=== PATIENT | female | born 1970 | race Hispanic/Latino ===

== ENCOUNTER 2017-12-19 18:25 | Emergency (ER) | payer SELFPAY ==
[2017-12-19 18:46] VITALS: BMI 23.4
[2017-12-19 18:53] VITALS: TEMP 99
--- NOTE | 2017-12-19 19:03 | ED PDOC ---
"Arrival/HPI - General Time Seen by Provider: 12/19/17 18:58 Historian: Patient, EMS EM Caveat: Uncooperative - History of Present Illness Narrative History of Present Illness (Text): 12/19/17 19:03 47 y/o female, limited HPI can be obtained as the patient is agitated, nkda, biba for etoh intoxication and found in the public yelling and screaming with etoh on breath. Pt. is here at the ER, resting on the stretcher, yelling and screaming at the staff and other patient, refused to answer many question, only provide selective answer. Pt. has no chest pain or shortness of breath, no night sweat, no rash, no numbness or tingling, no palpitation, no dizziness, no change in vision, no other medical or psychological complaints. Past Medical History - Provider Review Nursing Documentation Reviewed: Yes Family/Social History - Physician Review Nursing Documentation Reviewed: Yes Family/Social History: Unknown Family HX Allergies/Home Meds Allergies/Adverse Reactions: Allergies No Known Allergies Allergy (Verified 12/19/17 19:00) Review of Systems - Review of Systems Systems not reviewed;Unavailable: Uncooperative Physical Exam Vital Signs Reviewed: Yes Vital Signs Temp Pulse Resp BP Pulse Ox 12/19/17 19:17 99 F 83 18 125/77 97 12/19/17 18:25 99 F 83 18 125/77 97 Temperature: Afebrile Blood Pressure: Normal Pulse: Regular Respiratory Rate: Normal Appearance: Positive for: Well-Appearing, Non-Toxic, Comfortable Pain Distress: None Mental Status: Positive for: Agitated - Systems Exam Head: Present: Atraumatic, Normocephalic, Laceration (visible 3 stables with healing and dry blood scab noted with hematoma noted, wound is not healed. ) Pupils: Present: PERRL Extroacular Muscles: Present: EOMI Conjunctiva: Present: Normal Mouth: Present: Moist Mucous Membranes Nose (External): Present: Atraumatic. No: Abrasion, Contusion, Laceration Nose (Internal): Present: Normal Inspection, No Active Bleeding Neck: Present: Normal Range of Motion. No: MIDLINE TENDERNESS, Paraspinal Tenderness Respiratory/Chest: Present: Clear to Auscultation, Good Air Exchange. No: Respiratory Distress, Accessory Muscle Use, Retracting, Rhonchi Cardiovascular: Present: Regular Rate and Rhythm, Normal S1, S2. No: Murmurs Abdomen: No: Tenderness, Distention, Peritoneal Signs, Rebound, Guarding Back: Present: Normal Inspection. No: CVA Tenderness, Midline Tenderness, Paraspinal Tenderness Upper Extremity: Present: Normal Inspection, Normal ROM, NORMAL PULSES, Neurovascularly Intact, Capillary Refill < 2s. No: Cyanosis, Edema, Deformity Lower Extremity: Present: Normal Inspection, Normal ROM, Neurovascularly Intact , Capillary Refill < 2 s. No: Edema, Tenderness, Swelling, Deformity Neurological: Present: GCS=15, CN II-XII Intact, Speech Normal, Motor Func Grossly Intact, Memory Normal Skin: Present: Warm, Dry, Normal Color. No: Rashes Psychiatric: Present: Alert, Oriented x 3, Normal Insight, Normal Concentration Medical Decision Making ED Course and Treatment: 12/19/17 19:06 -labs/uds -CT Head -Ativan/haldol (agitated and yelling, threatened to leave, won't reason with me) , soft restraints both upper extremity. -Observe and reassess 12/19/17 21:03 -Pt. is calmed, sleeping, restraints remove. 12/20/17 00:30 -3 red is attach, wound appear to be new, wound still healing, doesn't appear to be day 7 or greater than 7 days, would keep the suture inside, no signs of infection on the staple. -CT Head show Left occipitoparietal scalp contusion with laceration status post closure with skin red. No acute intracranial abnormalities. Nonacute findings as above. -Beta HCG is negative which is within normal limit -labs show no acute findings except K+ 3.3 (potassium chloride 40meq po) and CK 524 (Pt. refused IV, drinking water. ) -UDS ordered but refused to provide urine, drug screen canceled. 12/20/17 02:05 -Pt. is still sleeping, resting comfortably, easily arousable, offers no medical or psychological complaints, vitally stable, pending sober -Case discussed and endorsed to the current ER attending Dr. Washington for re- evaluation/drug screen and sober. - Lab Interpretations Lab Results: 12/19/17 20:00 12/19/17 20:00 Lab Results 12/19/17 20:00: Salicylates < 1 L, Acetaminophen < 10.0 L 12/19/17 20:00: Beta HCG, Quant 3.51 12/19/17 20:00: Sodium 146, Potassium 3.3 L, Chloride 106, Carbon Dioxide 26, Anion Gap 17, BUN 11, Creatinine 0.5 L, Est GFR ( Amer) > 60, Est GFR ( Non-Af Amer) > 60, Random Glucose 83, Calcium 8.5, Magnesium 1.9, Total Bilirubin 0.4, AST 126 H, ALT 35, Alkaline Phosphatase 83, Total Creatine Kinase 524 H, CK-MB (CK-2) 4.5 H, CK-MB (CK-2) % Cancelled, Total Protein 7.0, Albumin 3.8, Globulin 3.2, Albumin/Globulin Ratio 1.2 12/19/17 20:00: WBC 3.9 L, RBC 3.68, Hgb 12.7, Hct 37.9, MCV 103.0, MCH 34.5, MCHC 33.5, RDW 13.9, Plt Count 167, MPV 8.2, Gran % 49.9 L, Lymph % (Auto) 37.6 H, [place] % (Auto) 9.9 H, Eos % (Auto) 1.8, Baso % (Auto) 0.8, Gran # 1.97, Lymph # (Auto) 1.5, [place] # (Auto) 0.4, Eos # (Auto) 0.1, Baso # (Auto) 0.03 - RAD Interpretation Radiology Orders: 12/19/17 19:01 HEAD W/O CONTRAST [CT] Stat CT Head: Limitations: Motion artifact degrades some of images. Brain: Volume loss. Cavum septum pellucidum and vergae. No acute hemorrhage. No acute infarct. Mild chronic small vessel white matter ischemia. Ventricles: No hydrocephalus. Bones/joints: No acute fracture. Soft tissues: Left occipitoparietal scalp contusion with laceration status post closure with skin red. Vasculature: Calcified plaque in the wall of the distal internal carotid arteries. Sinuses: Mild sinus mucosal thickening. Mastoid air cells: Unremarkable as visualized. IMPRESSION: Left occipitoparietal scalp contusion with laceration status post closure with skin red. No acute intracranial abnormalities. Nonacute findings as above. KEATON LEDESMA | Preliminary Radiology Report Thank you for allowing us to participate in the care of your patient. Dictated and Authenticated by: David Randolph MD 12/19/2017 11:46 PM Eastern Time ([place] & [place]) [employer] Operator: Radiologist - Medication Orders Current Medication Orders: Discontinued Medications Haloperidol Lactate (Haldol) 5 mg IM STAT STA PRN Reason: Protocol Stop: 12/19/17 19:02 Last Admin: 12/19/17 19:17 Dose: 5 mg IM Administration Charges Document 12/19/17 19:17 CNR (Rec: 12/19/17 19:17 [facility] [id number] Injection Site MAR Injection Site Left Gluteus Baldev Charges for Administration # of IM Administrations 1 Multivitamins/Vitamin C 10 ml/Thiamine HCl 100 mg/ Folic Acid 1 mg/ Dextrose 1, 011.2 mls @ 1,000 mls/hr IV .Q1H1M ONE Stop: 12/19/17 22:27 Lorazepam (Ativan) 2 mg IM ONCE ONE PRN Reason: Protocol Stop: 12/19/17 19:02 Last Admin: 12/19/17 19:17 Dose: 2 mg IM Administration Charges Document 12/19/17 19:17 CNR (Rec: 12/19/17 19:17 [facility] [id number] Injection Site MAR Injection Site Left Gluteus Baldev Charges for Administration # of IM Administrations 1 Potassium Chloride (K-Dur 20 Meq Er Tab) 40 meq PO STAT STA Stop: 12/19/17 21:02 - PA / SCULPTURE INSTRUCTOR / Resident Statement /DO has reviewed & agrees with the documentation as recorded. Disposition/Present on Arrival - Present on Arrival Any Indicators Present on Arrival: No History of DVT/PE: No History of Uncontrolled Diabetes: No Urinary Catheter: No History of Decub. Ulcer: No - Disposition Have Diagnosis and Disposition been Completed?: Yes Diagnosis: Alcohol intoxication Disposition Time: 02:00 Patient Problems: Current Active Problems Problem Status Onset Alcohol intoxication Acute Condition: GOOD"
[2017-12-19 20:44] LABS: ALB/GLOB RATIO 1.2 (1.1-1.8); ALBUMIN 3.8 g/dL (3.0-4.8); ALT/SGPT 35 U/L (7-56); AST/SGOT 126 U/L (14-36); BLOOD UREA NITROGEN 11 mg/dL (7-21); CALCIUM 8.5 mg/dL (8.4-10.5); GFR NON-AFRICAN AMERICAN > 60
[2017-12-19 20:45] LABS: BASO # 0.03 K/mm3 (0.0-2.0); BASO % 0.8 % (0.0-3.0); EOS # 0.1 (0.0-0.7); EOS % 1.8 % (1.5-5.0); GRAN # 1.97 (1.4-6.5); GRAN % 49.9 % (50.0-68.0); HEMOGLOBIN 12.7 g/dL (12.0-16.0); LYMPH # 1.5 (1.2-3.4); LYMPH % 37.6 % (22.0-35.0); MEAN CORPUSCULAR HEMOGLOBIN 34.5 pg (25.0-35.0); MEAN CORPUSCULAR HGB CONC 33.5 g/dl (31.0-37.0); MEAN PLATELET VOLUME 8.2 fl (7.0-11.0); MONO # 0.4 (0.1-0.6); MONO % 9.9 % (1.0-6.0); RBC 3.68 10^6/uL (3.5-6.1); RED CELL DISTRIBUTION WIDTH 13.9 % (11.5-14.5); WHITE BLOOD COUNT 3.9 10^3/ul (4.5-11.0)
[2017-12-19] MEDS ORDERED: Potassium Chloride 20 mEq ER Tab PO STA (21:01)
[2017-12-19 21:13] LABS: ACETAMINOPHEN < 10.0 ug/ml (10.0-20.0); SALICYLATE < 1 mg/dL (2.0-20.0)
[2017-12-19 21:26] LABS: CK-MB 4.5 ng/mL (0.0-3.6)
[2017-12-19] MEDS ORDERED: Multivitamin (MVI) 10 ML, Thiamine 100 MG, Folic Acid 1 MG in Dextrose 5% In Water 1,00... IV ONE (21:27)
[2017-12-19] MEDS ORDERED: Sodium Chloride 0.9% 1,000 ML IV SCH (21:30)
[2017-12-20 04:32] VITALS: PULSE 76; RESP 16
[2017-12-20 06:25] VITALS: BP 117/82; O2SAT 99
--- NOTE | 2017-12-20 07:59 | CT ---
Date of service: 12/19/2017 PROCEDURE: CT HEAD WITHOUT CONTRAST. HISTORY: etoh, agitated, r/o bleed COMPARISON: None available. TECHNIQUE: Axial computed tomography images were obtained through the head/brain without intravenous contrast. Radiation dose: Total exam DLP = 1501.0 to mGy-cm. This CT exam was performed using one or more of the following dose reduction techniques: Automated exposure control, adjustment of the mA and/or kV according to patient size, and/or use of iterative reconstruction technique. FINDINGS: Examination limited by motion and streak artifact which degrades several images. HEMORRHAGE: No intracranial hemorrhage. BRAIN: Diffuse atrophy with prominence of the ventricles and sulci noted. No mass effect or edema. Scattered periventricular and subcortical white matter hypodensities, which are nonspecific, but often seen with chronic microvascular ischemic disease. Please note that MRI with diffusion imaging is more sensitive in the detection of acute ischemic event. VENTRICLES: Cavum septum pellucidum, anatomic variant. No hydrocephalus. CALVARIUM: Unremarkable. PARANASAL SINUSES: Unremarkable as visualized. No significant inflammatory changes. MASTOID AIR CELLS: Unremarkable as visualized. No inflammatory changes. OTHER FINDINGS: Left occipital parietal scalp contusion with laceration and surgical skin red. IMPRESSION: Limited study as above. Left occipital parietal scalp contusion. Associated laceration status post closure with surgical skin red present. Additional findings as above. Preliminary impression was provided by virtual radiologic.
== END 2017-12-20 06:24 | disposition home or self-care (01) ==
LOC: ED 18:25
DX: F10.129 Alcohol abuse with intoxication, unspecified (principal)
CPT/HCPCS: 70450; 80053; 82550; 82553; 83735; 84702; 85025; 96372; 99285; G0480; J1630; J2060